=== PATIENT | male | born 1980 | race Caucasian/White ===

== ENCOUNTER 2022-10-16 07:30 | Emergency (ER) | payer OTHER ==
[2022-10-16 07:38] VITALS: O2SAT 100
[2022-10-16] MEDS ORDERED: SODIUM CHLORIDE 0.9% 1,000 ML IV STA (07:51)
--- NOTE | 2022-10-16 07:56 | ED Physician Documentation ---
History of Present Illness - Stated complaint Stated Complaint: LIGHTHEADED - Chief complaint Chief Complaint: General - History obtained from History obtained from: Patient, EMS - Additonal information Additional information: The patient comes to the emergency department via EMS for chief complaint of lightheadedness while running. The patient states that he has been doing his PT assessments with the [facility] and that he has done several runs in the last week. The patient states that he does some physical activity at baseline and often uses a stationary bike but really does not run much. He states that he has been trying to lose weight and has been severely restricting his calories over the last 2 weeks. Patient states that he was on a roughly 3 mile run and about 2 miles then, after going up a section of long uphill, began to feel very short of breath. He stumbled forward and somebody caught him before he fell full-force into the dirt. The patient was laid down on the dirt and states he did not lose consciousness. He felt very lightheaded and was beginning to have tunnel vision at the time he stumbled forward. He denies any chest pain. He did have some chest tightness. No nausea or vomiting. He states that right now, he still feels somewhat lightheaded but denies chest pain or shortness of breath at this time. He states that he has been drinking about a quart of water per day during all of this. Other than being mildly overweight, the patient states his other medical problems are depression and anxiety, for which he takes Lexapro. He denies any history of hypertension or cardiac issues. He does have a history of pre-diabetes but has not been treated for this. Medics report the patient sugar in route was 102. No pulmonary history. No other complaints at this time. The patient states he is not a smoker and occasionally vapes but not very often. No hypertension. He states his father and grandfather had MIs around 60. PD PAST MEDICAL HISTORY - Past Medical History Past Medical History: Yes GI: Other Psych: Depression, Anxiety - Past Surgical History Past Surgical History: No - Present Medications Home Medications: Ambulatory Orders Medication Instructions Recorded Confirmed Escitalopram Oxalate [Lexapro] 20 mg PO DAILY 10/16/22 10/16/22 traZODone [Desyrel] 50 mg PO DAILY 10/16/22 10/16/22 - Allergies Allergies/Adverse Reactions: Allergies Allergy/AdvReac Type Severity Reaction Status Date / Time No Known Drug Allergies Allergy Verified 10/16/22 07:40 - Social History Does the pt smoke?: No Smoking Status: Never smoker PD ED PE NORMAL - Vitals Vital signs reviewed: Yes - General General: Alert and oriented X 3, No acute distress, Well developed/nourished - HEENT HEENT: Atraumatic, PERRL, EOMI, Moist mucous membranes - Neck Neck: Supple, no meningeal sign - Cardiac Cardiac: RRR, No murmur, Strong equal pulses - Respiratory Respiratory: No respiratory distress, Clear bilaterally - Abdomen Abdomen: Soft, Non tender, Non distended - Derm Derm: Normal color, Warm and dry, No rash - Extremities Extremities: No deformity, No edema, No calf tenderness / cord - Neuro Neuro: Alert and oriented X 3, portrait artist 2-12 intact, Normal speech, Other (Grossly intact) - Psych Psych: Normal mood, Normal affect Results - Vitals Vitals: Vital Signs - 24 hr 10/16/22 10/16/22 10/16/22 07:35 08:02 09:27 Temperature 36.7 C Heart Rate 74 71 82 Respiratory 20 14 14 Rate Blood Pressure 125/88 H 123/83 H 125/84 H O2 Saturation 100 100 100 Oxygen O2 Source Room air - EKG (time done) 0756 EKG releavant findings:: EKG personally interpreted by author of this note. Relevant findings are: Rate: Rate (enter#) (64) Rhythm: NSR [place]: Normal Intervals: Normal [place] QRS: Normal Ischemia: Normal ST segments Compare to prior EKG: Old EKG unavailable Computer interpretation: Agree with computer - Labs Labs: Laboratory Tests 10/16/22 10/16/22 08:03 08:03 WBC 6.8 RBC 5.18 Hgb 14.8 Hct 45.3 MCV 87.5 MCH 28.6 MCHC 32.7 RDW 13.9 Plt Count 324 MPV 10.0 Neut # (Auto) 4.6 Lymph # (Auto) 1.5 [place] # (Auto) 0.6 Eos # (Auto) 0.1 Baso # (Auto) 0.0 Absolute Nucleated RBC 0.00 Nucleated RBC % 0.0 Sodium 141 Potassium 4.6 H Chloride 105 Carbon Dioxide 28 Anion Gap 8.0 BUN 20 Creatinine 1.1 Estimated GFR (MDRD) 74 L Glucose 97 Calcium 10.2 Total Bilirubin 0.6 AST 21 ALT 36 Alkaline Phosphatase 61 Troponin I High Sens 4.7 Total Protein 7.0 Albumin 4.9 Globulin 2.1 Albumin/Globulin Ratio 2.3 H Lipase 10 L PD Medical Decision Making - ED course Complexity details: reviewed results, re-evaluated patient, considered differential, d/w patient ED course: The patient was stable in the emergency department with the amount of. He was still mildly symptomatic and given he had been drinking an inadequate amount of fluids for even just normal activity, but especially, considering the amount of exertion he had been doing recently, I felt he should be rehydrated. He was started on a liter of normal saline and laboratory studies were obtained including ER abdominal panel, CBC, and troponin. I did also obtain an EKG, which was unremarkable. The patient was thirsty and I did give him nearly a liter of water to take orally in the emergency department, with instructions to finish the entire cup prior to discharge. The patient's laboratory studies and EKG were unremarkable. His did arrive and I was able to talk to both of them about the results, as well as to how to prevent the situation in the future. The patient was likely dehydrated, and additionally, had not been eating very much recently. We have discussed possibility of stress testing in follow-up, though the patient does have fairly low risk factors in terms of coronary artery disease with perhaps some degree of family history contributing but negative for everything else. Heart score is 1. We have discussed the usual indications for return as well. Departure - Departure Disposition: 01 Home, Self Care Clinical Impression: Near syncope Condition: Stable Instructions: ED Near Syncope Unkn Comments: Your labs overall look good. You had no electrolyte deficiencies, your blood counts were normal, and your cardiac enzymes look good. Additionally, your EKG showed no concerning abnormalities. Most likely, your exertional intolerance today was due to a variety of factors, including low caloric intake over the last couple of weeks, dehydration, and possibly some degree of lack of physical conditioning to the activity which you are mandated to do. Other factors, such as quality of sleep and stress can also contribute in a variable fashion. At this point in time, no emergent condition has been identified. Please schedule a [place] having a physical and general laboratory evaluation. You may also, if you wish, discuss having a stress test done to evaluate for possible underlying coronary artery disease, the underlying condition that leads to a "heart attack". As we discussed, you are fairly low risk for this, though your age is just now starting to be somewhat of a risk factor. Given that your family members were a couple of decades older than you when they developed clinically evident coronary artery disease, this is not likely to be a major contributor, but is something that you should bear in mind as you move through the next couple of decades. For today, please be sure that you drink plenty of water and get some rest. Please try to eat some nutritious food to replenish your body's nutritional stores. Forms: PCP List Discharge Date/Time: 10/16/22 09:39
[2022-10-16 08:15] LABS: BASOPHILS % (AUTO) 0.6 %; EOSINOPHILS # (AUTO) 0.1 10^3/uL (0.0-0.7); EOSINOPHILS % (AUTO) 1.2 %; HCT - HEMATOCRIT 45.3 % (42.0-52.0); HGB - HEMOGLOBIN 14.8 g/dL (14.0-18.0); LYMPHOCYTES # (AUTO) 1.5 10^3/uL (1.5-3.5); LYMPHOCYTES % (AUTO) 22.1 %; MEAN CORPUSCULAR HEMOGLOBIN 28.6 pg (27.0-31.0); MEAN CORPUSCULAR HGB CONC 32.7 g/dL (32.0-36.0); MEAN CORPUSCULAR VOLUME 87.5 fL (80.0-94.0); MONOCYTES # (AUTO) 0.6 10^3/uL (0.0-1.0); MONOCYTES % (AUTO) 8.4 %; NEUTROPHILS # (AUTO) 4.6 10^3/uL (1.5-6.6); NEUTROPHILS % (AUTO) 67.6 %; PLT - PLATELET COUNT 324 10^3/uL (130-450); RED BLOOD COUNT 5.18 10^6/uL (4.70-6.10); RED CELL DISTRIBUTION WIDTH 13.9 % (12.0-15.0); WHITE BLOOD COUNT 6.8 x10^3/uL (4.8-10.8)
[2022-10-16 08:27] LABS: ALBUMIN 4.9 g/dL (3.2-5.5); ALBUMIN/GLOBULIN RATIO 2.3 (1.0-2.2); BILIRUBIN,TOTAL 0.6 mg/dL (0.2-1.0); CALCIUM 10.2 mg/dL (8.5-10.3); CREATININE 1.1 mg/dL (0.6-1.3); POTASSIUM 4.6 mmol/L (3.5-4.5)
[2022-10-16 08:34] LABS: TROPONIN I HIGH SENSITIVITY 4.7 ng/L (2.3-19.7)
[2022-10-16 09:32] VITALS: BP 125/84
== END 2022-10-16 09:39 | disposition home or self-care (01) ==
LOC: ED 07:30
DX: R55 Syncope and collapse (principal)
CPT/HCPCS: 36415; 80053; 83690; 84484; 85025; 93005; 96360; 99284